=== PATIENT | male | born 2000 | race Hispanic/Latino ===

== ENCOUNTER 2020-10-03 09:47 | Emergency (ER) | payer OTHER ==
[~2020-10-03] VITALS: Ht 167.6 cm; Wt 75.8 kg
[2020-10-03 09:47] VITALS: BP 136/82
--- NOTE | 2020-10-03 10:41 | REP ---
INDICATION: int pain, no known injury. COMPARISON: None. TECHNIQUE: AP and frogleg views of the right hip are provided. FINDINGS: Right femoral head is smooth and rounded hip joint space is preserved. Periarticular soft tissues are unremarkable. No fracture or bony destructive lesion is seen. The visualized right hemipelvis is intact. IMPRESSION: Negative right hip radiographs. <Electronically signed by Salvador Jett > 10/03/20 [id number]
== END 2020-10-03 11:41 | disposition home or self-care (01) ==
LOC: M ED 09:47
DX: M25.552 Pain in left hip (principal)

== ENCOUNTER 2020-11-20 20:36 | Emergency (ER) | payer OTHER ==
[~2020-11-20] VITALS: Ht 167.6 cm; Wt 76.6 kg
[2020-11-20] MEDS ORDERED: LIDOCAINE 5% (LIDODERM) PATCH TD ONE (22:15)
[2020-11-20] MEDS ORDERED: KETOROLAC 60MG 2ML VIAL IM ONE (22:15)
[2020-11-20 22:28] LABS: BASO % 0.4 % (0.0-1.0); EOS # 0.2 10^3/uL (0.0-0.5); EOS % 2.4 % (0.0-3.0); HEMATOCRIT 44.3 % (42.0-52.0); HEMOGLOBIN 15.4 g/dl (13.5-17.5); LYMPH # 2.7 10^3/uL (1.5-5.0); LYMPH % 35.4 % (24.0-44.0); MEAN CORPUSCULAR HEMOGLOBIN 31.2 pg (27.0-33.0); MEAN CORPUSCULAR HGB CONC 34.8 g/dl (32.0-36.5); MEAN CORPUSCULAR VOLUME 89.9 fl (80.0-96.0); MONO # 0.6 10^3/uL (0.0-0.8); MONO % 7.7 % (2.0-8.0); NEUTROPHILS # 4.1 10^3/uL (1.5-8.5); NEUTROPHILS % 53.7 % (36.0-66.0); PLATELET COUNT, AUTOMATED 260 10^3/uL (150-450); RED BLOOD COUNT 4.93 10^6/uL (4.30-6.10); WHITE BLOOD COUNT 7.6 10^3/uL (4.0-10.0)
--- NOTE | 2020-11-20 23:11 | REPVR ---
PROCEDURE INFORMATION: Exam: XR Lumbosacral Spine Exam date and time: 11/20/2020 10:22 PM Age: 20 years old Clinical indication: Low back pain; Additional info: Bilat buttock pain radiates to legs TECHNIQUE: Imaging protocol: XR of the lumbosacral spine. Views: 4 or 5 views. COMPARISON: [place] Hip, Ap,Lat RIGHT 10/03/2020 10:15 AM FINDINGS: Bones/joints: Unremarkable. No acute fracture. Normal alignment. Disc spaces and facet joints are unremarkable. Soft tissues: Unremarkable. IMPRESSION: No acute findings. Electronically signed by: Josias Martin On 11/20/2020 23:11:34 PM
--- NOTE | 2020-11-20 23:14 | REPVR ---
PROCEDURE INFORMATION: Exam: XR Bilateral Hips Exam date and time: 11/20/2020 10:22 PM Age: 20 years old Clinical indication: Hip pain and pelvic pain; Bilateral; Additional info: Bilat buttock pain radiates to legs TECHNIQUE: Imaging protocol: XR bilateral hips. Views: 2 views of hips with pelvis when performed. COMPARISON: [place] Hip, Ap,Lat RIGHT 10/03/2020 10:15 AM FINDINGS: Bones/joints: Joint spaces are normal. No fracture or malalignment. Incidental bone island in the right femoral metaphysis. Soft tissues: Unremarkable. IMPRESSION: No fracture or malalignment. Electronically signed by: Josias Martin On 11/20/2020 23:14:20 PM
[2020-11-20] MEDS ORDERED: ROBA750T4 PO (23:49)
[2020-11-20] MEDS ORDERED: ASPE4PAD TOP (23:49)
[2020-11-20] MEDS ORDERED: NAPR-837 PO (23:49)
[2020-11-20] MEDS ORDERED: methocarbamoL 750 MG TAB PO ONE (23:50)
[2020-11-21 00:11] VITALS: BP 132/76
[2020-11-21] MEDS ORDERED: **NOTE PATIENT COMMENT** MISC XX SCH (21:00)
== END 2020-11-21 00:14 | disposition home or self-care (01) ==
LOC: M ED 20:36
DX: M54.5 Low back pain (principal)
CPT/HCPCS: 72110; 73521; 80047; 82550; 85025; 96372; 99283; J1885

== ENCOUNTER 2021-05-17 09:58 | Day surgery (SDC) | payer OTHER ==
[~2021-05-17] VITALS: Ht 167.6 cm; Wt 81.2 kg
[~2021-05-17 09:58] MED LIST: ASPE4PAD TOP; LR 1,000 ML IV ONE; NAPR-837 PO; ROBA750T4 PO; ceFAZolin SOD 2 GM in IV 1 EA IV ONE
[2021-05-17] MEDS ORDERED: LIDOCAINE 2% INJ 100 MG/5 ML SYRINGE As Ordered ONE (12:17)
[2021-05-17] MEDS ORDERED: METOCLOPRAMIDE INJ 10MG/2ML VIAL (J2765 PER 1) As Ordered ONE (12:17)
[2021-05-17] MEDS ORDERED: fentaNYL 100 MCG/2 ML INJECTION (J3010) As Ordered ONE (12:17)
[2021-05-17] MEDS ORDERED: ONDANSETRON 4MG/2ML VIAL As Ordered ONE (12:17)
[2021-05-17] MEDS ORDERED: MIDAZOLAM INJ 2MG/2ML VIAL (J2250 PER 1MG) As Ordered ONE (12:17)
[2021-05-17] MEDS ORDERED: propofoL 200 MG/20 ML VIAL As Ordered ONE (12:17)
[2021-05-17] MEDS ORDERED: LIDOCAINE 2% 100MG/5ML SDV (FOR ANES.) As Ordered ONE (12:19)
[2021-05-17] MEDS ORDERED: LIDOCAINE 1% SDV 30ML VIAL As Ordered ONE (13:04)
[2021-05-17] MEDS ORDERED: BUPIVACAINE HCL 0.25% 30ML VIAL As Ordered ONE (13:04)
[2021-05-17] MEDS ORDERED: HYDROmorphone HCL 2 MG/ML 1ML VIAL As Ordered ONE (13:08)
[2021-05-17] MEDS ORDERED: ePHEDrine SULFATE 25 MG/5 ML(5MG/ML) SYRINGE As Ordered ONE (13:13)
[2021-05-17] MEDS ORDERED: HYDROMORPHONE HCL 0.5 MG/ 0.5 ML SYRINGE (J1170 PER 1) IV PRN (14:35)
[2021-05-17] MEDS ORDERED: ONDANSETRON 4MG/2ML VIAL IV PRN (14:35)
[2021-05-17] MEDS ORDERED: LR 1,000 ML IV SCH (14:35)
[2021-05-17] MEDS: fentaNYL 100 MCG/2 ML INJECTION (J3010) IV PRN ×4 (14:45→15:03)
[2021-05-17] MEDS: oxyCODONE 5MG TAB PO PRN ×2 (14:45→15:18)
--- NOTE | 2021-05-17 15:10 | REP ---
INDICATION: RIGHT HIP FRACTURE. COMPARISON: None. TECHNIQUE: Ten views, 210.9 seconds of fluoroscopy time is reported peer FINDINGS: A sequence of 10 last image hold fluoroscopically obtained spot radiographs of the hip document pin fixation procedure. No laterality markers are visualized. IMPRESSION: Procedural imaging. <Electronically signed by Salvador Jett > 05/17/21 [id number]
[2021-05-17 15:41] VITALS: BP 124/60
--- NOTE | 2021-05-17 15:48 | RO ---
OPERATIVE NOTE DATE OF OPERATION: 05/17/2021 TIME: 1:00 p.m. SURGEON: Golyd Brown MD SMOKE JUMPER: None. SUPERVISING ATTENDING: Goldy Brown MD PREOPERATIVE DIAGNOSIS: Left femoral neck stress fracture. POSTOPERATIVE DIAGNOSIS: Left femoral neck stress fracture. NAME OF OPERATION: Left hip percutaneous screw fixation of the left femoral neck. FINDINGS: The patient had a stress fracture of the left femoral neck. INDICATIONS: This is a 21-year-old male with a right femoral neck stress fracture with ongoing right hip pain for several months, which was exacerbated with increased running and rucking. 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 The patient states that the right side got worse over the last couple of months and the pain does not go away. It is exacerbated by impact activity. He is indicated for a right hip percutaneous screw fixation of his right femoral neck stress fracture. ANESTHESIA: GETA. TOURNIQUET TIME: None used. ESTIMATED BLOOD LOSS: 50 mL. IV FLUIDS: Please see anesthesia report. IV ANTIBIOTICS: Please see anesthesia report. IMPLANTS: Synthes. CULTURES: None. SPECIMENS: None. DESCRIPTION OF PROCEDURE: The patient was met in the preoperative holding area where the patient's operative extremity was signed, the patient's consent was confirmed to be correct, and the patient's identity was confirmed to be correct. The patient was then transported to the operating theater where he was placed in a supine position on a fracture table. A safety strap secured the patient to the bed. All bony prominences were well padded. The contralateral lower extremity had an SCD placed. A timeout was called which confirmed the correct patient, correct operative extremity, and correct consent. All staff was in agreement. The patient was then draped in the usual sterile fashion. We began the procedure by obtaining fluoroscopic imaging of the patient's left hip and marking our landmarks to include the lesser trochanter and the proximal tip of the greater trochanter. I then incised the skin two finger breadths distal to the level of the lesser trochanter about the lateral cortex of the proximal femur. After incising the skin, I incised the IT band and advanced a threaded guide pin through the calcar region on the AP view and center-center on the femoral head and neck on the lateral fluoroscopic view. This was advanced in the subchondral bone on the AP and lateral views. I then made a separate incision approximately 1 inch superior to the first, a touch posterior in the posterior half of the femoral neck in the lateral view, but just inferior to the most superior aspect of the femoral head on the AP view. This was advanced in the superior portion of the femoral neck on the AP and lateral views in the subchondral bone. A third threaded guide pin was placed superimposed on the previously placed superior threaded guide pin on the AP view, but anterior to the calcar pin on the lateral view in a divergent fashion. This was introduced in the subchondral bone. At this point in time, I confirmed that each of the threaded guide pins were within subchondral bone and had not violated the femoral head. I measured each, which was recorded on the nursing sheet. I over drilled each of the three threaded guide pins, placed a 7.3-mm partially threaded cannulated 7.3-mm screw in the inferior most screw. This was my calcar screw without a washer. I then placed a second 6.5-mm partially threaded cannulated screw over the superior-posterior threaded guide pin, and a third and last partially threaded 6.5-mm cannulated screw over the superior-anterior threaded guide pin, however, this last screw had a washer placed. I then removed my threaded guide pins through the cannulated screws. I then took final fluoroscopic views to insure that I was satisfied with my three partially threaded cannulated screw placement. I then copiously irrigated the surgical wounds. I closed the dermal layer of my three percutaneous incisions with 2-0 Vicryl and closed the dermal layer using metallic hemant. The patient was then extubated without complications and transported to the postanesthesia care unit. The patient will follow the percutaneous pin fixation of a femoral neck fracture rehabilitative protocol. He will be 50% weightbearing for the next four weeks. He will then advance as tolerated. He was given his postoperative pain medications at his preoperative appointment. He will follow up at [facility] on [place] in two weeks for postoperative wound check. He will be educated of the aforementioned findings in the PACU.
== END 2021-05-17 16:35 | disposition home or self-care (01) ==
LOC: M SDC 09:58
PROVIDERS: ATTEND Orthopaedic Surgery
DX: M84.359A Stress fracture, hip, unspecified, initial encounter for fracture (principal); X58.XXXA Exposure to other specified factors, initial encounter; Y92.138 Other place on military base as the place of occurrence of the external cause; Y93.01 Activity, walking, marching and hiking; Y99.1 Military activity
CPT/HCPCS: 27235; 76000; C1713; J0690; J1170; J2250; J2405; J2765; J3010

== ENCOUNTER 2021-12-27 10:03 | Day surgery (SDC) | payer OTHER ==
[~2021-12-27] VITALS: Ht 167.6 cm; Wt 81.3 kg
[~2021-12-27 10:03] MED LIST changes: +TERB250T91 PO
[2021-12-27] MEDS ORDERED: propofoL 200 MG/20 ML VIAL As Ordered ONE ×2 (12:07→13:09)
[2021-12-27] MEDS ORDERED: ROCURONIUM BROMIDE 50 MG/5 ML VIAL As Ordered ONE (12:09)
[2021-12-27] MEDS ORDERED: LIDOCAINE 2% 100MG/5ML SDV (FOR ANES.) As Ordered ONE (12:09)
[2021-12-27] MEDS ORDERED: BUPIVACAINE LIPOSOME/PF 1.3% 20ML VIAL (13.3MG/ML)(EXPAREL) As Ordered ONE (12:37)
[2021-12-27] MEDS ORDERED: dexameTHASONE 4 MG/ML 1ML VIAL (J1100 PER 1MG) As Ordered ONE (12:38)
[2021-12-27] MEDS ORDERED: HYDROmorphone HCL 2MG/ML 1ML VIAL As Ordered ONE (12:40)
[2021-12-27] MEDS ORDERED: TRANEXAMIC ACID 100 MG/ML 10ML VIAL As Ordered ONE (12:55)
[2021-12-27] MEDS ORDERED: ONDANSETRON 4MG/2ML VIAL As Ordered ONE (13:03)
[2021-12-27] MEDS ORDERED: SUGAMMADEX SODIUM 500 MG/5 ML VIAL (BRIDION) As Ordered ONE ×2 (13:05→13:30)
[2021-12-27] MEDS ORDERED: ACETAMINOPHEN 1000MG 100ML IV BTL (OFIRMEV) (J0131 PER 10MG) As Ordered ONE (13:06)
[2021-12-27] MEDS ORDERED: fentaNYL 100 MCG/2 ML INJECTION As Ordered ONE (13:09)
[2021-12-27] MEDS ORDERED: MIDAZOLAM INJ 2MG/2ML VIAL (J2250 PER 1MG) As Ordered ONE (13:09)
[2021-12-27] MEDS ORDERED: KETOROLAC 60MG 2ML VIAL As Ordered ONE (13:32)
[2021-12-27] MEDS ORDERED: ONDANSETRON 4MG/2ML VIAL IV PRN (14:25)
[2021-12-27] MEDS ORDERED: oxyCODONE 5MG TAB PO PRN (14:25)
[2021-12-27] MEDS ORDERED: fentaNYL 100 MCG/2 ML INJECTION IV PRN (14:25)
[2021-12-27] MEDS ORDERED: LR 1,000 ML IV SCH (14:25)
[2021-12-27 15:05] VITALS: BP 143/85
== END 2021-12-27 15:37 | disposition home or self-care (01) ==
LOC: M SDC 10:03
PROVIDERS: ATTEND Orthopaedic Surgery
DX: T84.84XA Pain due to internal orthopedic prosthetic devices, implants and grafts, initial encounter (principal); Y79.2 Prosthetic and other implants, materials and accessory orthopedic devices associated with adverse incidents
CPT/HCPCS: 20680; 76000; 88300; C9290; J0131; J0690; J1100; J1170; J1885; J2250; J2405; J3010